=== PATIENT | female | born 1950 ===

== ENCOUNTER → 2018-08-13 13:17 | Outpatient (CLI) | payer SELFPAY ==
[2018-08-13 15:49] LABS: BASOPHILS 0.3 % (0-2); EOSINOPHILS 0.9 % (0-7); HEMATOCRIT 39.8 % (36.0-48.0); HEMOGLOBIN 13.1 g/dL (12-16); IMMATURE GRANULOCYTES 0.2 % (0-5); LYMPHOCYTES 30.2 % (15-50); MCHC 32.9 g/dL (31.0-37.0); MCV 91.3 fL (80.0-100.0); MONOCYTES 8.6 % (2-11); NEUTROPHILS 59.8 % (40-80); PLATELET COUNT 263 10x3/uL (130-400); RBC 4.36 10x6/uL (4.00-5.40); RDW 15.1 % (11.5-14.5); WBC 6.7 10x3/uL (4.8-10.8)
[2018-08-13 16:15] LABS: CALC OSMOLALITY 278 mosm/kg (275-300); CALCIUM 9.4 mg/dL (8.5-10.1); CARBON DIOXIDE 28.1 mmol/L (21.0-32.0); CHLORIDE - SERUM 104 mmol/L (98-107); CREATININE - SERUM 0.8 mg/dL (0.6-1.3); POTASSIUM - SERUM 3.4 mmol/L (3.5-5.1); SODIUM 142 mmol/L (136-145); UREA NITROGEN 8 mg/dL (7-18); eGFR NON AFRICAN AMERICAN 75 mL/min (90-120)
[2018-08-13 16:23] LABS: GLUCOSE 66 mg/dL (74-106)
== END | disposition home or self-care (01) ==
LOC: D.LABREF 13:17
PROVIDERS: ATTEND Internal Medicine
DX: J18.9 Pneumonia, unspecified organism (principal)